=== PATIENT | female | born 1960 | race Caucasian/White ===

== ENCOUNTER 2018-11-28 15:37 | Observation (INO) ==
[2018-11-28 16:27] LABS: Basophils # 0.1 10*3/uL (0.0-0.2); Basophils % 1.1 % (0.0-0.8); Eosinophils # 0.1 10*3/uL (0.0-0.87); Eosinophils % 0.6 % (0.00-10.9); Hematocrit 33.6 VOL% (35.7-47.0); Immature Granulocytes % 0.4 %; Immature Granulocytes Absolute 0.04 #; Lymphocytes # 2.2 10*3/uL (1.4-4.0); Lymphocytes % 23.2 % (21.3-54.2); Mean Corpuscular HGB Conc 32.7 GM/DL (32-36); Mean Corpuscular Volume 100.6 FL (87-102); Mean Platelet Volume 10.3 FL (9.6-12.0); Monocytes % 7.9 % (1.7-12.7); Neutrophils % 66.8 % (38.7-73.9); Platelet Count 192 T/CUMM (130-400); Red Blood Count 3.34 MC/CUMM (3.8-5.5); Red Cell Distribution Width 15.2 % (9.3-17.3); White Blood Count 9.6 T/CUMM (4-12)
[2018-11-28 16:46] LABS: Alanine Aminotransferase 17 U/L (13-56); Albumin 1.8 G/DL (3.4-5.0); Alkaline Phosphatase 182 U/L (45-117); Aspartate Amino Transferase 33 U/L (0-37); Blood Urea Nitrogen 13 MG/DL (7-18); Calcium 7.7 MG/DL (8.5-10.1); Glucose 84 MG/DL (74-106); Osmolality,Calculated 284.8 MOS/KG (273-304)
[2018-11-28] MEDS ORDERED: SODIUM CHLORIDE 0.9% 1,000 ML IV STA (19:27)
[2018-11-28] MEDS ORDERED: PROMETHAZINE 25 MG/1 ML VIAL IM STA (20:02)
[2018-11-28] MEDS ORDERED: HYDROmorphone 2 MG/1 ML VIAL IM STA (20:02)
[2018-11-28] MEDS ORDERED: ONDANSETRON 4 MG/2 ML VIAL IV PRN (20:50)
[2018-11-28] MEDS ORDERED: POTASSIUM CHLORIDE 20 MEQ TABLET PO PRN (20:56)
[2018-11-28] MEDS ORDERED: cefTRIAXone 1,000 MG in SYRINGE 1 EACH IV SCH (21:00)
[2018-11-28] MEDS ORDERED: ENOXAPARIN 40 MG/0.4 ML SYRINGE SUBCUT SCH (21:00)
[2018-11-28] MEDS ORDERED: metroNIDAZOLE INJ 500 MG in PREMIX 1 EACH IV SCH (21:00)
[2018-11-29] MEDS ORDERED: ONDANSETRON ODT 4 MG TABLET PO PRN (01:00)
[2018-11-29] MEDS: metroNIDAZOLE 500 MG TABLET PO SCH ×4 (01:07→17:20)
[2018-11-29] MEDS: cefTRIAXone 1,000 MG VIAL IM SCH (01:08)
[2018-11-29] MEDS: oxyCODONE/ACETAMINOPHEN 5-325 MG TABLET PO PRN (01:08)
[2018-11-29] MEDS ORDERED: PROMETHAZINE 25 MG/1 ML VIAL IM PRN (02:19)
[2018-11-29] MEDS: ONDANSETRON 4 MG/2 ML VIAL IV PRN (02:35)
[2018-11-29] MEDS: HYDROmorphone 2 MG/1 ML VIAL IV PRN ×5 (02:35→22:24)
[2018-11-29 06:57] LABS: Basophils # 0.1 10*3/uL (0.0-0.2); Basophils % 0.7 % (0.0-0.8); Eosinophils # 0.1 10*3/uL (0.0-0.87); Eosinophils % 0.9 % (0.00-10.9); Hematocrit 30.9 VOL% (35.7-47.0); Hemoglobin 10.2 GM/DL (12.0-16.0); Immature Granulocytes % 0.4 %; Immature Granulocytes Absolute 0.04 #; Mean Corpuscular Volume 101.3 FL (87-102); Mean Platelet Volume 11.1 FL (9.6-12.0); Platelet Count 179 T/CUMM (130-400); Red Blood Count 3.05 MC/CUMM (3.8-5.5); Red Cell Distribution Width 15.6 % (9.3-17.3)
[2018-11-29 07:18] LABS: Albumin 1.6 G/DL (3.4-5.0); Bilirubin,Total 0.5 MG/DL (0.2-1.0); Calcium 7.3 MG/DL (8.5-10.1); Osmolality,Calculated 286.7 MOS/KG (273-304); Total Protein 5.4 G/DL (6.4-8.3)
[2018-11-29] MEDS ORDERED: DEXTROSE 50% 25 GM/50 ML VIAL IV PRN (08:48)
[2018-11-29] MEDS ORDERED: GLUCAGON 1 MG VIAL IM PRN (08:48)
[2018-11-29] MEDS ORDERED: NON-FORMULARY MEDICATION (Oxycodone-Acetaminophen 1 TABLET) PO SCH (09:00)
[2018-11-29] MEDS ORDERED: PANTOPRAZOLE 40 MG TABLET PO SCH (09:00)
[2018-11-29] MEDS: DEXT 5% NACL 0.9% KCL 20 MEQ 20 MEQ/1,000 ML BAG IV SCH ×2 (09:04→17:22)
[2018-11-29] MEDS: ESCITALOPRAM 10 MG TABLET PO SCH (09:05)
[2018-11-29] MEDS: PANTOPRAZOLE 40 MG TABLET PO SCH ×2 (09:05→21:28)
[2018-11-29] MEDS: PROMETHAZINE INJ 25 MG in SODIUM CHLORIDE 0.9% 50 ML IV SCH ×3 (09:05→21:26)
[2018-11-29] MEDS: INSULIN REGULAR 100 UNIT/ML SUBCUT SCH ×3 (11:39→21:28)
[2018-11-29] MEDS ORDERED: POLYETHYLENE GLYCOL POWDER 255 GM BOTTLE PO ONE (18:00)
[2018-11-29] MEDS ORDERED: MAGNESIUM CITRATE 300 ML BOTTLE PO ONE (21:00)
[2018-11-30] MEDS: metroNIDAZOLE 500 MG TABLET PO SCH ×2 (00:21→07:54)
[2018-11-30] MEDS: PROMETHAZINE INJ 25 MG in SODIUM CHLORIDE 0.9% 50 ML IV SCH (01:02)
[2018-11-30] MEDS: cefTRIAXone 1,000 MG VIAL IM SCH (01:03)
[2018-11-30] MEDS: DEXT 5% NACL 0.9% KCL 20 MEQ 20 MEQ/1,000 ML BAG IV SCH ×2 (01:14→11:20)
[2018-11-30] MEDS: HYDROmorphone 2 MG/1 ML VIAL IV PRN ×4 (04:51→18:01)
[2018-11-30 05:21] LABS: Basophils # 0.1 10*3/uL (0.0-0.2); Basophils % 1.4 % (0.0-0.8); Eosinophils # 0.1 10*3/uL (0.0-0.87); Eosinophils % 1.8 % (0.00-10.9); Hematocrit 26.3 VOL% (35.7-47.0); Hemoglobin 8.7 GM/DL (12.0-16.0); Immature Granulocytes % 0.3 %; Immature Granulocytes Absolute 0.02 #; Lymphocytes % 27.3 % (21.3-54.2); Mean Corpuscular HGB Conc 33.1 GM/DL (32-36); Mean Platelet Volume 10.5 FL (9.6-12.0); Monocytes % 9.5 % (1.7-12.7); Neutrophils % 59.7 % (38.7-73.9); Platelet Count 154 T/CUMM (130-400); Red Blood Count 2.63 MC/CUMM (3.8-5.5); Red Cell Distribution Width 15.8 % (9.3-17.3); White Blood Count 7.4 T/CUMM (4-12)
[2018-11-30 05:38] LABS: Osmolality,Calculated 290.7 MOS/KG (273-304)
[2018-11-30] MEDS: INSULIN REGULAR 100 UNIT/ML SUBCUT SCH ×4 (08:46→20:33)
[2018-11-30] MEDS: ESCITALOPRAM 10 MG TABLET PO SCH (09:05)
[2018-11-30] MEDS: PANTOPRAZOLE 40 MG TABLET PO SCH ×2 (09:05→20:25)
[2018-11-30] MEDS: PROMETHAZINE INJ 25 MG in SODIUM CHLORIDE 0.9% 50 ML IV PRN ×2 (11:22→17:45)
[2018-11-30] MEDS: CHOLECALCIFEROL 1,000 UNIT TABLET PO SCH (11:22)
[2018-11-30] MEDS: PIPERACILLIN/TAZOBACTAM 3,375 MG in SODIUM CHLORIDE 0.9% 100 ML IV SCH ×2 (13:05→20:25)
[2018-11-30] MEDS ORDERED: PROMETHAZINE 25 MG/1 ML VIAL ONE (13:10)
[2018-11-30] MEDS ORDERED: LIDOCAINE 100 MG/5 ML SYRINGE ONE (13:10)
[2018-11-30] MEDS ORDERED: PROPOFOL 200 MG/20 ML VIAL IV ONE (13:10)
[2018-11-30] MEDS ORDERED: ONDANSETRON 4 MG/2 ML VIAL ONE (13:10)
[2018-11-30] MEDS: PROCHLORPERAZINE 5 MG TABLET PO SCH ×2 (15:15→20:25)
[2018-11-30] MEDS: oxyCODONE/ACETAMINOPHEN 5-325 MG TABLET PO PRN (23:38)
[2018-12-01] MEDS: PIPERACILLIN/TAZOBACTAM 3,375 MG in SODIUM CHLORIDE 0.9% 100 ML IV SCH ×2 (03:17→14:32)
[2018-12-01] MEDS: ONDANSETRON 4 MG/2 ML VIAL IV PRN ×2 (03:49→13:46)
[2018-12-01] MEDS: HYDROmorphone 2 MG/1 ML VIAL IV PRN ×4 (03:49→21:55)
[2018-12-01 05:21] LABS: Basophils # 0.1 10*3/uL (0.0-0.2); Basophils % 1.1 % (0.0-0.8); Eosinophils # 0.2 10*3/uL (0.0-0.87); Eosinophils % 2.6 % (0.00-10.9); Hematocrit 26.3 VOL% (35.7-47.0); Hemoglobin 8.6 GM/DL (12.0-16.0); Immature Granulocytes % 0.3 %; Immature Granulocytes Absolute 0.02 #; Lymphocytes # 2.6 10*3/uL (1.4-4.0); Lymphocytes % 39.5 % (21.3-54.2); Mean Corpuscular HGB Conc 32.7 GM/DL (32-36); Mean Corpuscular Volume 101.5 FL (87-102); Mean Platelet Volume 11.6 FL (9.6-12.0); Monocytes % 9.7 % (1.7-12.7); Neutrophils % 46.8 % (38.7-73.9); Red Blood Count 2.59 MC/CUMM (3.8-5.5); Red Cell Distribution Width 16.1 % (9.3-17.3); White Blood Count 6.6 T/CUMM (4-12)
[2018-12-01 05:24] LABS: Platelet Count 126 T/CUMM (130-400)
[2018-12-01 05:54] LABS: % Iron Saturation 62.3 % (18-50); Ferritin 373.6 ng/ml (8-252)
[2018-12-01 06:14] LABS: Folate 3.4 NG/ML (5.4-24.0); Vitamin B12 538 PG/ML (211-911)
[2018-12-01 06:17] LABS: Platelet Estimate Decreased
[2018-12-01 06:18] LABS: Polychromasia Few
[2018-12-01 06:28] LABS: Sedimentation Rate-Westergren 16 MM/HR (0-30)
[2018-12-01] MEDS ORDERED: PROPOFOL 200 MG/20 ML VIAL IV ONE (09:00)
[2018-12-01] MEDS ORDERED: LIDOCAINE 2% 5 ML VIAL ONE (09:00)
[2018-12-01] MEDS: INSULIN REGULAR 100 UNIT/ML SUBCUT SCH ×4 (09:09→20:48)
[2018-12-01] MEDS: PANTOPRAZOLE 40 MG TABLET PO SCH ×2 (09:10→20:49)
[2018-12-01] MEDS: PROCHLORPERAZINE 5 MG TABLET PO SCH ×3 (09:10→20:49)
[2018-12-01] MEDS: DEXT 5% NACL 0.9% KCL 20 MEQ 20 MEQ/1,000 ML BAG IV SCH ×3 (09:11→23:54)
[2018-12-01] MEDS ORDERED: ONDANSETRON 4 MG/2 ML VIAL ONE (13:45)
[2018-12-01] MEDS: CHOLECALCIFEROL 1,000 UNIT TABLET PO SCH (14:31)
[2018-12-01] MEDS: FOLIC ACID 1 MG TABLET PO SCH (14:31)
[2018-12-01] MEDS: ESCITALOPRAM 10 MG TABLET PO SCH (14:32)
[2018-12-01] MEDS: PROMETHAZINE INJ 25 MG in SODIUM CHLORIDE 0.9% 50 ML IV PRN (17:59)
[2018-12-01] MEDS: oxyCODONE/ACETAMINOPHEN 5-325 MG TABLET PO PRN (19:54)
[2018-12-02] MEDS: ONDANSETRON 4 MG/2 ML VIAL IV PRN ×4 (03:52→21:51)
[2018-12-02 04:39] LABS: Basophils # 0.1 10*3/uL (0.0-0.2); Basophils % 1.1 % (0.0-0.8); Eosinophils # 0.2 10*3/uL (0.0-0.87); Eosinophils % 3.4 % (0.00-10.9); Hematocrit 28.2 VOL% (35.7-47.0); Hemoglobin 8.7 GM/DL (12.0-16.0); Immature Granulocytes % 0.3 %; Immature Granulocytes Absolute 0.02 #; Lymphocytes # 1.9 10*3/uL (1.4-4.0); Lymphocytes % 30.2 % (21.3-54.2); Mean Corpuscular HGB Conc 30.9 GM/DL (32-36); Mean Corpuscular Volume 105.2 FL (87-102); Mean Platelet Volume 10.4 FL (9.6-12.0); Monocytes % 10.8 % (1.7-12.7); Neutrophils % 54.2 % (38.7-73.9); Platelet Count 121 T/CUMM (130-400); Red Blood Count 2.68 MC/CUMM (3.8-5.5); Red Cell Distribution Width 16.1 % (9.3-17.3); White Blood Count 6.2 T/CUMM (4-12)
[2018-12-02] MEDS: PROMETHAZINE INJ 25 MG in SODIUM CHLORIDE 0.9% 50 ML IV PRN (05:39)
[2018-12-02] MEDS: ESCITALOPRAM 10 MG TABLET PO SCH (08:13)
[2018-12-02] MEDS: FOLIC ACID 1 MG TABLET PO SCH (08:13)
[2018-12-02] MEDS: INSULIN REGULAR 100 UNIT/ML SUBCUT SCH ×4 (08:13→21:07)
[2018-12-02] MEDS: PANTOPRAZOLE 40 MG TABLET PO SCH ×2 (08:13→21:06)
[2018-12-02] MEDS: CHOLECALCIFEROL 1,000 UNIT TABLET PO SCH (08:13)
[2018-12-02] MEDS: PROCHLORPERAZINE 5 MG TABLET PO SCH ×2 (08:13→14:32)
[2018-12-02] MEDS: HYDROmorphone 2 MG/1 ML VIAL IV PRN (08:20)
[2018-12-02] MEDS ORDERED: HYDROmorphone 2 MG/1 ML VIAL IV PRN (08:48)
[2018-12-02 08:58] LABS: Hemoglobin A1 (Alkaline) 97.1 % (96.5-98.5); Hemoglobin A2 (Alkaline) 2.9 % (1.5-3.5)
[2018-12-02] MEDS: DEXT 5% NACL 0.9% KCL 20 MEQ 20 MEQ/1,000 ML BAG IV SCH ×2 (09:02→16:37)
[2018-12-02] MEDS: oxyCODONE/ACETAMINOPHEN 5-325 MG TABLET PO PRN (14:32)
[2018-12-02] MEDS ORDERED: KETOROLAC 30 MG/1 ML VIAL IV ONE (17:08)
[2018-12-02] MEDS ORDERED: POLYVINYL ALCOHOL 1.4% OPH SOLN 15 ML BOTTLE BOTH EYES PRN (17:10)
[2018-12-02] MEDS: METOCLOPRAMIDE 10 MG/2 ML VIAL IV SCH (18:20)
[2018-12-02] MEDS: MEGESTROL 400 MG/10 ML UDCUP PO SCH (21:06)
[2018-12-03] MEDS: METOCLOPRAMIDE 10 MG/2 ML VIAL IV SCH ×3 (00:09→11:42)
[2018-12-03] MEDS: DEXT 5% NACL 0.9% KCL 20 MEQ 20 MEQ/1,000 ML BAG IV SCH ×2 (00:11→09:15)
[2018-12-03] MEDS: ONDANSETRON 4 MG/2 ML VIAL IV PRN ×4 (01:57→12:54)
[2018-12-03 05:20] LABS: Basophils % 0.5 % (0.0-0.8); Hematocrit 31.7 VOL% (35.7-47.0); Hemoglobin 10.2 GM/DL (12.0-16.0); Immature Granulocytes % 0.7 %; Immature Granulocytes Absolute 0.06 #; Lymphocytes % 11.3 % (21.3-54.2); Mean Corpuscular HGB Conc 32.2 GM/DL (32-36); Mean Corpuscular Volume 102.9 FL (87-102); Mean Platelet Volume 11.1 FL (9.6-12.0); Monocytes % 6.2 % (1.7-12.7); Neutrophils % 81.3 % (38.7-73.9); Platelet Count 148 T/CUMM (130-400); Red Blood Count 3.08 MC/CUMM (3.8-5.5); Red Cell Distribution Width 16.2 % (9.3-17.3); White Blood Count 8.5 T/CUMM (4-12)
[2018-12-03 05:41] LABS: Calcium 7.2 MG/DL (8.5-10.1); Osmolality,Calculated 296.4 MOS/KG (273-304)
[2018-12-03] MEDS: CHOLECALCIFEROL 1,000 UNIT TABLET PO SCH (09:12)
[2018-12-03] MEDS: FOLIC ACID 1 MG TABLET PO SCH (09:12)
[2018-12-03] MEDS: MEGESTROL 400 MG/10 ML UDCUP PO SCH (09:13)
[2018-12-03] MEDS: PANTOPRAZOLE 40 MG TABLET PO SCH (09:13)
[2018-12-03] MEDS: ESCITALOPRAM 10 MG TABLET PO SCH (09:13)
[2018-12-03] MEDS: INSULIN REGULAR 100 UNIT/ML SUBCUT SCH ×2 (09:14→11:43)
[2018-12-03 13:52] VITALS: BP 118/68
== END 2018-12-03 13:11 | disposition home or self-care (01) ==
LOC: N.ED 15:37 → N.EDINP 15:37 → SUPCPDRO 20:50 → SUATTDRO 20:50 → N.5E 21:25
PROVIDERS: ADMIT Hospitalist; ATTEND Internal Medicine
PROC: COLONBX (2018-11-30 08:35)